=== PATIENT | female | born 1980 | race Caucasian/White ===

== ENCOUNTER 2019-01-13 14:04 | Emergency (ER) | payer MEDICAID ==
[~2019-01-13] VITALS: Ht 170.2 cm; Wt 67.0 kg
[2019-01-13 14:08] VITALS: BP 138/90
[2019-01-13] MEDS ORDERED: DICL25TA10 PO (14:48)
[2019-01-13] MEDS ORDERED: ketorolac trometh inj. 60 MG/2 ML VIAL IM ONE (14:50)
== END 2019-01-13 15:26 | disposition home or self-care (01) ==
LOC: ER 14:05
DX: M54.5 Low back pain (principal); G89.29 Other chronic pain; Z79.899 Other long term (current) drug therapy
CPT/HCPCS: 96372; 99283; J1885